=== PATIENT | male | born 1990 | race African-American/Black ===

== ENCOUNTER 2018-06-18 08:08 | Emergency (ER) | payer SELFPAY ==
[2018-06-18] MEDS ORDERED: HYDROcodone/Acetaminophen 10/325 mg Tablet ONE (09:09)
== END 2018-06-18 09:50 | disposition home or self-care (01) ==
LOC: ERS 08:08
DX: K03.81 Cracked tooth (principal); K02.9 Dental caries, unspecified; F90.9 Attention-deficit hyperactivity disorder, unspecified type; F31.9 Bipolar disorder, unspecified; F17.210 Nicotine dependence, cigarettes, uncomplicated
CPT/HCPCS: 99282